=== PATIENT | female | born 1960 | race Caucasian/White ===

== ENCOUNTER → 2017-03-10 | Outpatient (CLI) | payer BC ==
[2017-03-10 10:30] LABS: HCT 41.9 % (34.0-46.0); HGB 13.7 gm/dL (11.4-16.0); MCH 29.4 pg (25.0-35.0); MCHC 32.7 g/dL (31.0-37.0); MCV 89.9 fL (80.0-100.0); Mean Platelet Volume 7.2; Platelet Count 239 k/uL (150-450); RBC 4.66 m/uL (3.80-5.40); RDW 12.2 % (11.5-15.5); WBC 5.6 k/uL (3.8-10.6)
[2017-03-10 10:34] LABS: ALT 38 U/L (9-52); AST 24 U/L (14-36); Albumin 4.2 g/dL (3.5-5.0); Alkaline Phosphatase 80 U/L (38-126); Anion Gap 8 mmol/L; Blood Urea Nitrogen 19 mg/dL (7-17); Calcium 9.9 mg/dL (8.4-10.2); Carbon Dioxide 30 mmol/L (22-30); Chloride 102 mmol/L (98-107); Cholesterol 224 mg/dL (<200); Glucose 73 mg/dL (74-99); Potassium 4.4 mmol/L (3.5-5.1); Sodium 140 mmol/L (137-145); Total Bilirubin 0.4 mg/dL (0.2-1.3); Total Protein 6.7 g/dL (6.3-8.2)
--- NOTE | 2017-03-10 11:48 | WWHP ---
[facility] - HISTORY AND PHYSICAL DATE OF DICTATION: 03/10/2017 CHIEF COMPLAINT: The patient is here for her routine gynecologic exam and mammogram. HPI: This is a 56-year-old G2, P2-0-0-3 with an LMP of 09/16/2010. The patient is without gynecologic complaints and denies any postmenopausal bleeding. She is requesting routine blood work. PAST MEDICAL HISTORY: Unremarkable. MEDICATIONS: 1. Multivitamin 1 daily. 2. Zinc supplement daily. 3. Vitamin B12 supplement daily. 4. Calcium with vitamin D 1 daily. ALLERGIES: No known drug allergies. PAST SURGICAL HISTORY: section x2 and colonoscopy in 2012. PAST LOGISTICS PLANNING MANAGER HISTORY: She has been menopausal since 2010 and has no history of STDs. SOCIAL HISTORY: She denies tobacco, alcohol, and drug use. 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 FAMILY HISTORY: Unchanged from the 04/04/2015 H&P. REVIEW OF SYSTEMS: She previously lost about 70 pounds in 2008 and 2009. She has gained about 19 pounds back over the last year. She denies respiratory, cardiac or GI problems. : She states she often has to get to the bathroom right away when she has to go, is otherwise without urinary problems. PHYSICAL EXAM: Blood pressure 108/72, height 5 feet 2 inches, weight 171 pounds, BMI 31, temperature 97.9, pulse 69. This is a well-developed, well-nourished, white female, who is alert and oriented x3, in no acute distress. HEENT is within normal limits. NECK: Supple without mass or thyromegaly. CHEST AND LUNGS: Clear to auscultation. HEART: Regular rate and rhythm. Breasts are without mass or discharge. Axillary exam is negative for adenopathy. Back negative for CVA tenderness. ABDOMEN: Soft, nontender, without palpable masses. Pelvic exam external genitalia reveals mild atrophy without lesions. Vagina reveals mild atrophy without lesions. There is no evidence of prolapse. The uterus is mid-position, nongravid size and nontender. There are no palpable adnexal masses or tenderness. Rectovaginal exam is negative for mass or tenderness and is negative for occult blood. EXTREMITIES: Nontender. IMPRESSION: A 56-year-old menopausal female with normal gynecologic exam. PLAN: 1. Pap smear was deferred since she had a normal one less than 2 years ago. 2. Self-breast examination was discussed. 3. Mammogram will be done today. 4. Lab test will include CBC, comprehensive Chem panel, cholesterol, and TSH for screening. 5. Osteoporosis prevention was discussed. Will plan on repeating her bone density testing in 1 year. 6. She will return in 1 year. MMODL / IJN: [id number] /
--- NOTE | 2017-03-11 08:41 | MM ---
Reason for exam: screening (asymptomatic). Last mammogram was performed 1 year and 4 months ago. History: Patient is postmenopausal. Benign US biopsy breast VAD RT of the right breast, April 20, 2015. Physical Findings: A clinical breast exam by your physician is recommended on an annual basis and results should be correlated with mammographic findings. MG Screening Mammo w CAD Bilateral CC and MLO view(s) were taken. Prior study comparison: November 06, 2015, right breast MG diagnostic mammo RT w CAD. April 20, 2015, right breast MG diagnostic mammo RT wo CAD. There are scattered fibroglandular densities. Previous mammotome biopsy in the right breast. There is no discrete abnormality. ASSESSMENT: Negative, BI-RAD 1 RECOMMENDATION: Routine screening mammogram of both breasts in 1 year.
== END | disposition home or self-care (01) ==
LOC: WWCWWP 08:32
PROVIDERS: ATTEND Obstetrics & Gynecology
DX: Z12.31 Encounter for screening mammogram for malignant neoplasm of breast (principal); Z00.00 Encounter for general adult medical examination without abnormal findings
CPT/HCPCS: 36415; 77067; 80053; 82465; 84443; 85027

== ENCOUNTER → 2017-04-24 | Outpatient (CLI) | payer BC ==
[2017-04-24 09:27] LABS: Blood Urea Nitrogen 22 mg/dL (7-17); Cholesterol 229 mg/dL (<200); HDL Cholesterol 80 mg/dL (40-60); LDL Cholesterol,Calculated 141 mg/dL (0-99); Triglycerides 41 mg/dL (<150)
== END | disposition home or self-care (01) ==
LOC: LABWHC1 08:43
PROVIDERS: ATTEND Obstetrics & Gynecology
DX: E78.5 Hyperlipidemia, unspecified (principal); N25.9 Disorder resulting from impaired renal tubular function, unspecified
CPT/HCPCS: 36415; 80061; 82565; 84520

== ENCOUNTER → 2018-06-01 | Outpatient (CLI) | payer BC ==
[2018-06-01 12:59] VITALS: BP 128/84; PULSE 75; RESP 16; TEMP 98; BMI 33.2
--- NOTE | 2018-06-01 13:43 | P.HPOB ---
History of Present Illness H&P Date: 06/01/18 Chief Complaint: The patient is here for her routine gynecologic exam and ma mmogram. This is a 57-year-old 003 with an LMP of 2010. The patient is without gynecologic complaints and denies any postmenopausal bleeding. She is requesting an order for her routine blood work. Review of Systems The patient has gained 5 pounds over the last year. She denies respiratory, cardiac, or G.I. problems. Past Medical History Past Medical History: No Reported History Additional Past Medical History / Comment(s): Mildly elevated total cholesterol. PAST LOCAL FLATBED DRIVER HISTORY: She has no history of STDs. History of Any Multi-Drug Resistant Organisms: None Reported Past Surgical History: Section Additional Past Surgical History / Comment(s): times 2. Colonoscopy 2012(next 10yrs). 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 - Past Family History Father Family Medical History: Cancer Additional Family Medical History / Comment(s): Lung cancer Mother Family Medical History: Hypertension Additional Family Medical History / Comment(s): Maternal grandmother had diabetes. Brother(s) Additional Family Medical History / Comment(s): Congenital heart defect. Medications and Allergies Home Medications Medication Instructions Recorded Confirmed Type Calcium Carbonate/Vitamin D3 1 each PO 06/01/18 History [Calcium 600-Vit D3 400 Caplet] Cyanocobalamin [Vitamin B-12] 500 mcg PO DAILY 06/01/18 06/01/18 History Multivitamin [Multivitamins Adult 1 each PO 06/01/18 History Gummies] Zinc 50 mg PO 06/01/18 History Allergies Allergy/AdvReac Type Severity Reaction Status Date / Time No Known Allergies Allergy Verified 06/01/18 12:59 Exam Vital Signs Temp Pulse Resp BP Pulse Ox 06/01/18 12:50 98.0 F 75 16 128/84 98 Intake and Output 05/31/18 06/01/18 06/01/18 22:59 06:59 14:59 Other: Weight 79.832 kg Height 5'1", weight 176 pounds, BMI 33. This is a well-developed well-nourished white female who is alert and oriented times 3 in no acute distress. HEENT: Within normal limits. NECK: Supple without mass or thyromegaly. CHEST AND LUNGS: Clear to auscultation. HEART: Regular rate and rhythm. BREASTS: Are without mass or discharge. AXILLARY EXAM: Negative for adenopathy. BACK: Negative for CVA tenderness. ABDOMEN: Soft, nontender, without palpable masses. PELVIC EXAM: Normal external genitalia with mild atrophy. Cervix and vagina appear normal with mild atrophy. The cervix appears nulliparous. There is no unusual discharge. There is no evidence of prolapse. The uterus is midposition, nongravid size and nontender. There are no palpable adnexal masses or tenderness. RECTAL EXAM: rectovaginal exam is negative for mass or tenderness and is negative for occult blood. EXTREMITIES: Nontender. IMPRESSION: 1. 57-year-old menopausal female with normal gynecologic exam. 2. Mother had history of osteoporosis. 3. Mildly elevated total cholesterol. PLAN: 1. Pap smear was performed. 2. Self breast awareness was discussed with the patient. 3. Screening mammogram will be done today. 4. Osteoporosis prevention was discussed. I have stressed the importance of adequate calcium, vitamin D and regular exercise. Recommended amounts of calcium and vitamin D were also discussed. Bone density testing will be repeated today. Her last one was borderline and she has a family history of osteoporosis. 5. A lab slip for screening blood work will include comprehensive campaign, fasting lipid profile and CBC. She will return for this when she is fasting. The order slip was given to the patient. 6.She was advised to return in one year for her annual well woman exam.
--- NOTE | 2018-06-01 15:31 | BD ---
EXAMINATION TYPE: Axial Bone Density DATE OF EXAM: 06/01/2018 COMPARISON: 02.13.2014 CLINICAL HISTORY: 57 YR OLD FEMALE...ICD-10 Height: 61.4 Weight: 173 FRAX RISK QUESTIONS: NOTHING TO NOTE HERE RISK FACTORS HISTORY OF: Family History of Osteoporosis: UNKNOWN Active: YES Postmenopausal woman: YES AT AGE 49 MEDICATIONS: Additional Medications: CALCIUM WITH D3, ZINC, B12 AND MULTIVITAMIN Additional History: NOTHING TO NOTE HERE EXAM MEASUREMENTS: Bone mineral densitometry was performed using the aihuishou System. Bone mineral density as measured about the Lumbar spine is: ----- L1-L4(G/cm2): 1.066 T Score Values are as follows: ----- L1: -0.9 ----- L2: -1.5 ----- L3: -1.0 ----- L4: -0.7 ----- L1-L4: -1.0 Bone mineral density has: Decreased -3.2% since study of: 02.13.2014 Bone mineral density about the R hip (g/cm2): 0.970 Bone mineral density about the L hip (g/cm2): 1.051 T Score values are as follows: -----R Neck: -0.5 -----L Neck: -0.3 -----R Total: -0.3 -----L Total: 0.1 Bone mineral density has: Decreased -0.9% since study of: 02.13.2014 FRAX%s: THERE IS A 5.2% CHANCE FOR A MAJOR OSTEOPOROTIC FX AND A 0.1% FOR HIP.....PROBABILITY OF FX IN 10 YRS TIME IMPRESSION: Osteopenia (T Score between -2.5 and -1) with respect to the lumbar spine. There is slightly increased risk of fracture and the patient may be considered for treatment. Re-Screen 2-5 years. NOTE: T-SCORE=SD OF THE YOUNG ADULT MEAN.
--- NOTE | 2018-06-03 10:05 | MM ---
Reason for exam: screening (asymptomatic). Last mammogram was performed 1 year and 3 months ago. History: Patient is postmenopausal. Benign US biopsy breast VAD RT of the right breast, April 20, 2015. Physical Findings: A clinical breast exam by your physician is recommended on an annual basis and results should be correlated with mammographic findings. MG 3D Screening Mammo W/Cad Bilateral CC and MLO view(s) were taken. Prior study comparison: March 10, 2017, bilateral MG screening mammo w CAD. November 06, 2015, right breast MG diagnostic mammo RT w CAD. There are scattered fibroglandular densities. Previous mammotome biopsy in the right breast. No significant changes when compared with prior studies. ASSESSMENT: Negative, BI-RAD 1 RECOMMENDATION: Routine screening mammogram of both breasts in 1 year.
== END ==
LOC: WWCWWP 12:21
PROVIDERS: ATTEND Obstetrics & Gynecology
DX: Z12.31 Encounter for screening mammogram for malignant neoplasm of breast (principal); M85.88 Other specified disorders of bone density and structure, other site; Z78.0 Asymptomatic menopausal state
CPT/HCPCS: 77063; 77067; 77080

== ENCOUNTER → 2018-06-11 | Outpatient (CLI) | payer BC ==
[2018-06-11 08:36] LABS: HCT 39.8 % (34.0-46.0); HGB 13.2 gm/dL (11.4-16.0); MCH 28.5 pg (25.0-35.0); MCHC 33.2 g/dL (31.0-37.0); MCV 85.9 fL (80.0-100.0); Mean Platelet Volume 8.6; Platelet Count 232 k/uL (150-450); RBC 4.63 m/uL (3.80-5.40); RDW 14.3 % (11.5-15.5); WBC 4.6 k/uL (3.8-10.6)
[2018-06-11 15:58] LABS: Cholesterol 231 mg/dL (0-200); Triglycerides <50.0 mg/dL (0.0-149.0); VLDL Calculation 9.98 mg/dL (5.00-40.00)
[2018-06-11 15:59] LABS: ALT 19 U/L (8-44); AST 23 U/L (13-35); Albumin/Globulin Ratio 2.44 (1.60-3.17); Alkaline Phosphatase 81 U/L (41-126); Calcium 8.9 mg/dL (8.7-10.3); Chloride 101 mmol/L (96-109); Globulin 1.8 g/dL (1.6-3.3); Glucose 82 mg/dL (70-110); Potassium 3.9 mmol/L (3.5-5.5); Sodium 137 mmol/L (135-145); Total Bilirubin 0.7 mg/dL (0.3-1.2); Total Protein 6.2 g/dL (6.2-8.2)
== END | disposition home or self-care (01) ==
LOC: LABWHC1 07:59
PROVIDERS: ATTEND Obstetrics & Gynecology
DX: Z00.00 Encounter for general adult medical examination without abnormal findings (principal); E78.5 Hyperlipidemia, unspecified
CPT/HCPCS: 36415; 80053; 80061; 85027

== ENCOUNTER → 2020-07-19 | Outpatient (CLI) | payer BC ==
--- NOTE | 2020-07-20 13:20 | MM ---
Reason for exam: screening (asymptomatic). Last mammogram was performed 2 years and 2 months ago. History: Patient is postmenopausal. Benign US biopsy breast VAD RT of the right breast, April 20, 2015. Physical Findings: A clinical breast exam by your physician is recommended on an annual basis and results should be correlated with mammographic findings. MG 3D Screening Mammo W/Cad Bilateral CC and MLO view(s) were taken. Prior study comparison: June 01, 2018, bilateral MG 3d screening mammo w/cad. March 10, 2017, bilateral MG screening mammo w CAD. There are scattered fibroglandular densities. There is no discrete abnormality. No significant changes when compared with prior studies. ASSESSMENT: Negative, BI-RAD 1 RECOMMENDATION: Routine screening mammogram of both breasts in 1 year.
== END | disposition home or self-care (01) ==
LOC: RADMAMWWP 07:46
PROVIDERS: ATTEND Family Medicine
DX: Z12.31 Encounter for screening mammogram for malignant neoplasm of breast (principal); Z78.0 Asymptomatic menopausal state
CPT/HCPCS: 77063; 77067